=== PATIENT | male | born 1955 | race Caucasian/White ===

== ENCOUNTER 2018-09-05 11:01 | Outpatient (CLI) | payer BC ==
--- NOTE | 2018-09-05 14:50 | CT Report ---
Reason: PERSONAL HISTORY OF NICOTINE ABUSE Procedure Date: 09/05/2018 Accession Number: [id number] / [id number] Procedure: CT - Chest/Lung Screen Low Dose W/O CPT Code: FULL RESULT: EXAM CT LUNG SCREEN EXAM DATE: 09/05/2018 11:20 AM. HISTORY: 63-year-old patient with [id number] smoking history. Currently smoking: Yes. COMPARISON: None. TECHNIQUE: CT examination of the entire thorax without contrast was performed using low-dose technique. Thin section coronal, axial, sagittal and MIP axial images were obtained. In accordance with CT protocol optimization, one or more of the following dose reduction techniques were utilized for this exam: automated exposure control, adjustment of mA and/or KV based on patient size, or use of iterative reconstructive technique. FINDINGS: Nodules: Right upper lobe: 3.8 mm nodule in image 49 series 4 Right middle lobe: None. Right lower lobe: None. Left upper lobe: Calcified granuloma image 73 series 4. Left lower lobe: None. Emphysema: Bilateral predominantly centrilobular emphysema. Pleura: Unremarkable. Aorta: Mild calcifications. Mediastinum: Unremarkable. Coronary calcifications: Minimal. Other pulmonary findings: None. Other extrapulmonary findings: None. IMPRESSION: Lung-RADS ASSESSMENT CATEGORY: 2 - benign. Probability of malignancy: Less than 1%. RECOMMENDATION: Recommended follow up based on Lung-RADS guidelines with low-dose CT in 1 year. RADIA
== END 2018-09-05 11:02 | disposition home or self-care (01) ==
LOC: DI 11:01
PROVIDERS: ATTEND Family Medicine
DX: Z12.2 Encounter for screening for malignant neoplasm of respiratory organs (principal); R91.1 Solitary pulmonary nodule; J84.10 Pulmonary fibrosis, unspecified; Z87.891 Personal history of nicotine dependence

== ENCOUNTER 2019-08-17 11:31 | Emergency (ER) | payer BC ==
--- NOTE | 2019-08-17 12:52 | XRAY Report ---
Reason: Fall, R sided rib pain Procedure Date: 08/17/2019 Accession Number: [id number] / [id number] Procedure: XR - Ribs w/PA Chest RT CPT Code: FULL RESULT: EXAM: RIGHT RIB RADIOGRAPHY EXAM DATE: 08/17/2019 12:03 PM. CLINICAL HISTORY: Fall, R sided rib pain. COMPARISON: CHEST SCREEN LOW DOSE W/O 09/05/2018 11:22 AM. TECHNIQUE: 1 view of the chest and 2 views of the ribs. FINDINGS: Bones: Right seventh, eighth, ninth, 10th rib fractures. Multiple old left rib fractures. Lungs: No focal opacities. No pneumothorax. No pleural effusions. Mediastinum: Heart and mediastinal contours are unremarkable. Other: None. IMPRESSION: Right seventh, eighth, ninth and 10th rib fracture. No pneumothorax. RADIA
[2019-08-17] MEDS ORDERED: HYDROmorphone 1 MG/ML CARPUJECT IVP STA ×2 (13:34→15:45)
--- NOTE | 2019-08-17 13:36 | ED Physician Documentation ---
History of Present Illness - Stated complaint Stated Complaint: GLF/RT SIDE RIB PX - Chief complaint Chief Complaint: General - History obtained from History obtained from: Patient - History of Present Illness Timing: Last night (Fell off a ladder last night onto a ledge, hitting the right side of his chest. Severe pain but has not tried anything except for a few stiff drinks last night. Has a lot of pain with deep breathing. No other injuries.) Review of Systems Ten Systems: 10 systems reviewed and negative Constitutional: reports: Reviewed and negative Throat: reports: Reviewed and negative Respiratory: reports: Reviewed and negative PD PAST MEDICAL HISTORY - Present Medications Home Medications: Ambulatory Orders Medication Instructions Recorded Confirmed Oxycodone HCl/Acetaminophen 1 - 2 each PO Q6H PRN #30 tablet 08/17/19 [Percocet 5-325 mg Tablet] - Allergies Allergies/Adverse Reactions: Allergies Allergy/AdvReac Type Severity Reaction Status Date / Time No Known Drug Allergies Allergy Verified 08/17/19 11:48 - Social History Does the pt smoke?: No Smoking Status: Never smoker PD ED PE NORMAL - Vitals Vital signs reviewed: Yes - General General: Alert and oriented X 3 (Splinting his breaths) - HEENT HEENT: PERRL, EOMI - Neck Neck: Supple, no meningeal sign, No bony TTP - Cardiac Cardiac: RRR, No murmur - Respiratory Respiratory: No respiratory distress, Clear bilaterally, Other (Quite tender over the right chest wall) - Abdomen Abdomen: Soft, Non tender - Back Back: No CVA TTP, No spinal TTP - Derm Derm: Normal color, Warm and dry - Extremities Extremities: No edema, No calf tenderness / cord - Neuro Neuro: Alert and oriented X 3, Normal speech Results - Vitals Vitals: Vital Signs - 24 hr 08/17/19 11:44 Temperature 36.7 C Heart Rate 58 L Respiratory 18 Rate Blood Pressure 150/94 H O2 Saturation 98 - Labs Labs: Laboratory Tests 08/17/19 08/17/19 08/17/19 14:10 14:10 14:10 WBC 7.6 RBC 5.02 Hgb 16.5 Hct 48.6 MCV 96.8 H MCH 32.9 H MCHC 34.0 RDW 12.2 Plt Count 321 MPV 9.4 Neut # (Auto) 4.6 Lymph # (Auto) 1.9 [place] # (Auto) 0.7 Eos # (Auto) 0.2 Baso # (Auto) 0.1 Absolute Nucleated RBC 0.00 Nucleated RBC % 0.0 PT 12.6 INR 1.1 Sodium 136 Potassium 4.0 Chloride 97 L Carbon Dioxide 27 Anion Gap 12.0 BUN 19 Creatinine 0.9 Estimated GFR (MDRD) 85 L Glucose 101 H Calcium 9.5 Total Bilirubin 0.9 AST 45 H ALT 79 H Alkaline Phosphatase 69 Total Protein 8.0 Albumin 4.7 Globulin 3.3 Albumin/Globulin Ratio 1.4 Lipase 28 - Rads (name of study) CXR and CT Chest Radiology: EMP read contemporaneously PD MEDICAL DECISION MAKING - ED course ED course: 64-year-old gentleman with a fall yesterday sustaining 4 broken ribs on x-ray, given his age and concern for more internal injuries this was followed by CT with no other acute findings of significance. He was offered admission to the hospital or transfer to a trauma center but he very much wanted to go home with pain medication. He was much better after some IV Dilaudid here. Departure - Departure Disposition: 01 Home, Self Care Clinical Impression: Multiple fractures of ribs Qualifiers: Encounter type: initial encounter Fracture type: closed Laterality: right Qualified Code(s): S22.41XA - Multiple fractures of ribs, right side, initial encounter for closed fracture Condition: Good Record reviewed to determine appropriate education?: Yes Instructions: ED Fx Rib Prescriptions: Oxycodone HCl/Acetaminophen [Percocet 5-325 mg Tablet] 1 - 2 each PO Q6H PRN #30 tablet PRN Reason: pain Comments: Followup with your MD in 1 week, return for new or worsening symptoms. Do not drink or drive while taking narcotic pain medication. Note that many narcotic pain relievers also contain Tylenol/acetaminophen. Please ensure that your total dose of acetaminophen from all sources does not exceed 3 g (3000 mg) per day. You may get constipated while on this medication. Take a stool softener such as Colace twice a day while you are on it. Also add an [id number] laxative such as senna or MiraLAX on any day that you do not have a bowel movement. If you received a narcotic pain medication or sedative while in the emergency department, do not drive for the next 24 hours.
[2019-08-17 14:19] LABS: BASOPHILS # (AUTO) 0.1 10^3/uL (0.0-0.1); BASOPHILS % (AUTO) 0.8 %; EOSINOPHILS # (AUTO) 0.2 10^3/uL (0.0-0.7); HGB - HEMOGLOBIN 16.5 g/dL (14.0-18.0); LYMPHOCYTES # (AUTO) 1.9 10^3/uL (1.5-3.5); LYMPHOCYTES % (AUTO) 24.9 %; MEAN CORPUSCULAR HEMOGLOBIN 32.9 pg (27.0-31.0); MEAN CORPUSCULAR VOLUME 96.8 fL (80.0-94.0); MEAN PLATELET VOLUME 9.4 fL (7.4-11.4); MONOCYTES # (AUTO) 0.7 10^3/uL (0.0-1.0); MONOCYTES % (AUTO) 9.7 %; NEUTROPHILS # (AUTO) 4.6 10^3/uL (1.5-6.6); NEUTROPHILS % (AUTO) 61.3 %; PLT - PLATELET COUNT 321 10^3/uL (130-450); RED BLOOD COUNT 5.02 10^6/uL (4.70-6.10); RED CELL DISTRIBUTION WIDTH 12.2 % (12.0-15.0); WHITE BLOOD COUNT 7.6 x10^3/uL (4.8-10.8)
[2019-08-17 14:24] LABS: INR 1.1 (0.8-1.2); PT - PROTHROMBIN TIME 12.6 secs (9.9-12.6)
[2019-08-17 14:32] LABS: ALBUMIN 4.7 g/dL (3.2-5.5); ALBUMIN/GLOBULIN RATIO 1.4 (1.0-2.2); BILIRUBIN,TOTAL 0.9 mg/dL (0.2-1.0); CALCIUM 9.5 mg/dL (8.5-10.3); CREATININE 0.9 mg/dL (0.6-1.2)
[2019-08-17] MEDS ORDERED: IOVERSOL 320 100 ML VIAL IVP ONE ×2 (14:55→15:00)
--- NOTE | 2019-08-17 15:21 | CT Report ---
Reason: 4+ rib frxs Procedure Date: 08/17/2019 Accession Number: [id number] / [id number] Procedure: CT - CHEST W CPT Code: FULL RESULT: EXAM: CT CHEST EXAM DATE: 08/17/2019 02:58 PM. CLINICAL HISTORY: 4+ rib frxs. Fall, right-sided pain. COMPARISONS: CHEST SCREEN LOW DOSE W/O 09/05/2018 11:22 AM RIBS W/PA CHEST RT 08/17/2019 11:55 AM. TECHNIQUE: Routine helical CT imaging was performed through the chest. IV contrast: 80 cc Optiray 320. Reconstructions: Coronal and sagittal. In accordance with CT protocol optimization, one or more of the following dose reduction techniques were utilized for this exam: automated exposure control, adjustment of mA and/or KV based on patient size, or use of iterative reconstructive technique. FINDINGS: Lungs/Pleura: Mild centrilobular emphysema. 1 cm subpleural simple cyst inferiorly in the lateral segment right middle lobe. Mild dependent atelectasis in the posterior basal right lower lobe. Mild wispy scarring laterally in the mid lower left lung. No confluent consolidation. Central airways are normal. No pleural fluid or pneumothorax. Mediastinum: Heart size is normal. Central pulmonary arteries are unremarkable. There is mild calcified and noncalcified plaque in the arch and descending thoracic aorta. Lower thyroid gland unremarkable. Minimal fluid in the distal esophagus. Small sliding hiatal hernia no lymphadenopathy. No hematoma. Bones: Acute mildly displaced fractures of the lateral right seventh, eighth, ninth, and 10th ribs. No other acute fractures are identified. There are chronic healed fractures of the left first through 11th ribs. Visualized Abdomen: Simple bilateral renal cortical cysts. Gallbladder surgically absent. Common bile duct moderately dilated measuring up to 14 mm in the suprapancreatic portion without intrahepatic ductal dilatation, probably physiologic in the setting of prior cholecystectomy. Other: Chest wall unremarkable. IMPRESSION: 1. Acute mildly displaced fractures of the lateral right seventh through 10th ribs. 2. Chronic healed fractures of the left first through 11th ribs. 3. Mild atelectasis at the right lung base. Mild centrilobular emphysema. No pleural fluid or pneumothorax. 4. No mediastinal hematoma. 5. Tiny hiatal hernia. 6. Mild common bile duct dilation, likely physiologic in the setting of prior cholecystectomy. RADIA
[2019-08-17] MEDS ORDERED: KETOROLAC 30 MG/ML VIAL IVP STA (15:45)
[2019-08-17 16:01] VITALS: BP 151/78
== END 2019-08-17 16:01 | disposition home or self-care (01) ==
LOC: ED 11:31
DX: S22.41XA Multiple fractures of ribs, right side, initial encounter for closed fracture (principal); W11.XXXA Fall on and from ladder, initial encounter
CPT/HCPCS: 36415; 71101; 71260; 80053; 83690; 85025; 85610; 96374; 96376; 99283; 99284; J1170; Q9967

== ENCOUNTER 2019-08-20 03:41 | Emergency (ER) | payer BC ==
--- NOTE | 2019-08-20 06:58 | ED Physician Documentation ---
PD HPI ABD PAIN - Stated complaint Stated Complaint: ABD PX - Chief complaint Chief Complaint: Abd Pain - History obtained from History obtained from: Patient - History of Present Illness Timing - onset: How many days ago (4) Timing - duration: Days (4) Timing - details: Gradual onset, Still present Quality: Cramping, Pain Location: All over / everywhere Improved by: Other (time) Worsened by: Palpation Associated symptoms: Constipation Similar symptoms before: Has not had sx before Recently seen: Emergency Dept - Additional information Additional information: 64-year-old male was seen in the emergency department after a fall off of the ladder 3 days ago and he was prescribed narcotic pain reliever for treatment of rib fracture. The patient promptly developed constipation and he has had no stool output since. He was seen here about 3 days ago for these fractures and he has become uncomfortable with the level of constipation he has developed. He has taken a bottle of magnesium citrate without relief and he has taken senna. Review of Systems Constitutional: reports: Fatigue. denies: Fever Eyes: denies: Decreased vision Ears: denies: Ear pain Nose: denies: Rhinorrhea / runny nose, Congestion Throat: denies: Sore throat Cardiac: reports: Chest pain / pressure. denies: Palpitations, Pedal edema, Calf pain Respiratory: denies: Dyspnea, Cough GI: reports: Abdominal Pain, Constipation. denies: Nausea, Vomiting : denies: Dysuria, Frequency PD PAST MEDICAL HISTORY - Present Medications Home Medications: Ambulatory Orders Medication Instructions Recorded Confirmed Oxycodone HCl/Acetaminophen 1 - 2 each PO Q6H PRN #30 tablet 08/17/19 [Percocet 5-325 mg Tablet] Lactulose [Generlac] 10 gm PO TID PRN #150 ml 08/20/19 - Allergies Allergies/Adverse Reactions: Allergies Allergy/AdvReac Type Severity Reaction Status Date / Time No Known Drug Allergies Allergy Verified 08/17/19 11:48 - Social History Does the pt smoke?: No Smoking Status: Never smoker PD ED PE NORMAL - Vitals Vital signs reviewed: Yes (hypertensive ) - General General: Alert and oriented X 3, Well developed/nourished, Other (apears worn out) - HEENT HEENT: Atraumatic, PERRL, EOMI - Respiratory Respiratory: No respiratory distress - Abdomen Abdomen: Soft, Other (mild tenderness to right side no gaurding or rebound. ) - Back Back: No CVA TTP, No spinal TTP - Derm Derm: Normal color, Warm and dry, No rash - Extremities Extremities: No deformity, No edema, No calf tenderness / cord - Neuro Neuro: Alert and oriented X 3, information and referral director 2-12 intact, No motor deficit, No sensory deficit, Normal speech Eye Opening: Spontaneous Motor: Obeys Commands Verbal: Oriented GCS Score: 15 - Psych Psych: Normal mood, Other (affect is blunted. ) Results - Vitals Vitals: Vital Signs - 24 hr 08/20/19 03:47 Temperature 36.8 C Heart Rate 64 Respiratory 16 Rate Blood Pressure 154/95 H O2 Saturation 95 Oxygen O2 Source Room air PD MEDICAL DECISION MAKING - ED course Complexity details: reviewed results, re-evaluated patient, considered differential, d/w patient, d/w family ED course: 64-year-old male with opiate induced constipation appears uncomfortable and he is administered an oil retention enema without results and a Violette soapsuds enema with return of significant amount of watery stool. Departure - Departure Disposition: 01 Home, Self Care Clinical Impression: Constipation Qualifiers: Constipation type: drug induced constipation Qualified Code(s): K59.03 - Drug induced constipation Condition: Stable Instructions: ED Constipation Follow-Up: Nash Davidson MD [Primary Care Provider] - Prescriptions: Lactulose [Generlac] 10 gm PO TID PRN #150 ml PRN Reason: constipation Comments: For this narcotic induced constipation try the lactulose. This is a "PRN" medication and you can take up to 3 doses per day.
[2019-08-20 07:20] VITALS: BP 153/79
== END 2019-08-20 07:20 | disposition home or self-care (01) ==
LOC: ED 03:41
DX: K59.03 Drug induced constipation (principal); T40.2X5A Adverse effect of other opioids, initial encounter
CPT/HCPCS: 99282; 99283

== ENCOUNTER 2020-12-06 15:19 | Outpatient (CLI) | payer OTHER ==
[2020-12-06] MEDS ORDERED: IOPAMIDOL-300 50 ML VIAL ONE (15:37)
[2020-12-06] MEDS ORDERED: IOVERSOL 320 100 ML VIAL IVP ONE ×2 (15:37→16:39)
--- NOTE | 2020-12-06 17:48 | CT Report ---
PROCEDURE: Abdomen/Pelvis W INDICATIONS: LLQ PAIN CONTRAST: IV CONTRAST: Optiray 320 ml: 100 PO CONTRAST: Isovue 300 ml50 TECHNIQUE: After the administration of IV and oral contrast, 5 mm thick sections acquired from the diaphragms to the symphysis. 5 mm thick coronal and sagittal reformats were acquired. For radiation dose reducti on, the following was used: automated exposure control, adjustment of mA and/or kV according to forrest ent size. COMPARISON: None. FINDINGS: Image quality: Excellent. ABDOMEN: Lung bases: 4 mm diameter nodule within the right lateral lung base. Lung bases are otherwise clear. Heart size is normal. Solid organs: Liver and spleen are normal in size and enhancement. Gallbladder is surgically absent Biliary system is non dilated. Pancreas enhances normally. No adrenal nodules. Bilateral renal c ysts are present, largest of which is partially exophytic, involving the left inferior pole/interpola r kidney measuring 60 mm which demonstrates parapelvic extension. Kidneys otherwise demonstrate parag l size and enhancement, without hydronephrosis. Peritoneum and bowel: Small hiatal hernia. Bowel loops demonstrate normal wall thickness and caliber. No free fluid or air. Normal appendix. Nodes and vessels: No retroperitoneal or mesenteric adenopathy by size criteria. Aorta and inferior vena cava are normal in size. Miscellaneous: No ventral hernias. PELVIS: Genitourinary: Bladder wall is trabeculated. There is a left anterior urinary bladder wall diverticu lum measuring roughly 36 mm. Miscellaneous: No inguinal hernias or adenopathy. Bones: No suspicious bony lesions. No vertebral body compression fractures. IMPRESSION: 1. No acute process. 2.Urinary bladder trabeculation and diverticulum, suggestive of chronic bladder outlet obstruction. 3. Normal appendix. Reviewed by: Jocelyne Greer MD on 12/06/2020 5:46 PM PST Approved by: Jocelyne Greer MD on 12/06/2020 5:46 PM PST Station ID: [id number]
== END 2020-12-06 15:20 | disposition home or self-care (01) ==
LOC: DI 15:19
PROVIDERS: ATTEND Surgery
DX: R10.32 Left lower quadrant pain (principal)
CPT/HCPCS: 74177; Q9967

== ENCOUNTER 2020-12-16 14:25 | Outpatient (CLI) | payer OTHER ==
--- NOTE | 2020-12-16 15:10 | XRAY Report ---
PROCEDURE: Knee 3 View LT INDICATIONS: PAIN IN LT KNEE TECHNIQUE: 3 views of the left knee(s) were acquired. COMPARISON: None. FINDINGS: Bones: No fractures or dislocations. There are tricompartmental osteoarthritis is seen more prominen t in medial femoral tibial compartment. No suspicious bony lesions. Soft tissues: No joint effusion. No suspicious soft tissue calcifications. IMPRESSION: No left knee fracture or dislocation. Moderate tricompartmental osteoarthritis. No signi ficant joint effusion. Reviewed by: Mauricio Melgar MD on 12/16/2020 3:08 PM PST Approved by: Mauricio Melgar MD on 12/16/2020 3:08 PM PST Station ID: [id number]
--- NOTE | 2020-12-16 15:10 | XRAY Report ---
PROCEDURE: Knee 3 View RT INDICATIONS: PAIN IN RT KNEE TECHNIQUE: 3 views of the right knee(s) were acquired. COMPARISON: None. FINDINGS: Bones: No fractures or dislocations. Mild to moderate tricompartment osteoarthritis is seen more pro minent in medial femoral tibial compartment. No suspicious bony lesions. Soft tissues: No joint effusion. No suspicious soft tissue calcifications. IMPRESSION: Mild to moderate tricompartmental osteoarthritis more prominent in medial femoral tibial compartment. No fracture or dislocation. No joint effusion. Reviewed by: Mauricio Melgar MD on 12/16/2020 3:09 PM PST Approved by: Mauricio Melgar MD on 12/16/2020 3:09 PM PST Station ID: [id number]
== END 2020-12-16 14:26 | disposition home or self-care (01) ==
LOC: DI.S 14:25
PROVIDERS: ATTEND Family Medicine
DX: M17.0 Bilateral primary osteoarthritis of knee (principal)

== ENCOUNTER 2021-02-17 17:15 | Outpatient (CLI) | payer OTHER | END 2021-02-17 17:16 | disposition home or self-care (01) | LOC: COV 17:15 | DX: Z01.812 Encounter for preprocedural laboratory examination (principal); Z20.822 Contact with and (suspected) exposure to COVID-19 ==

== ENCOUNTER 2021-10-04 12:11 | Emergency (ER) | payer MEDICARE, OTHER ==
[2021-10-04] MEDS ORDERED: SODIUM CHLORIDE 0.9% 1,000 ML IV STA (12:41)
[2021-10-04] MEDS ORDERED: PANTOPRAZOLE 40 MG VIAL IVP STA (12:41)
--- NOTE | 2021-10-04 12:42 | ED Physician Documentation ---
History of Present Illness - Stated complaint Stated Complaint: CP, UNABLE TO SWOLLOW,VOMITING BLOOD,CHILLS,FEVER - History obtained from History obtained from: Patient - Additonal information Additional information: 66-year-old gentleman with history of hiatal hernia and remote reflux got back from [place] last night where he had been drinking heavily, much more than is his routine. For the last couple of days he has been vomiting with some small blood streaks, he is also had cough. No shortness of breath though. He is fully immunized against Covid and has had a booster. Review of Systems Constitutional: denies: Fever, Chills Eyes: reports: Reviewed and negative Ears: reports: Reviewed and negative Nose: reports: Reviewed and negative Throat: reports: Reviewed and negative PD PAST MEDICAL HISTORY - Present Medications Home Medications: Ambulatory Orders Medication Instructions Recorded Confirmed Omeprazole 40 mg PO DAILY #30 cap 10/04/21 - Allergies Allergies/Adverse Reactions: Allergies Allergy/AdvReac Type Severity Reaction Status Date / Time No Known Drug Allergies Allergy Verified 10/04/21 12:44 - Social History Does the pt smoke?: No Smoking Status: Never smoker PD ED PE NORMAL - Vitals Vital signs reviewed: Yes - General General: Alert and oriented X 3, No acute distress - HEENT HEENT: PERRL, EOMI - Neck Neck: Supple, no meningeal sign, No bony TTP - Cardiac Cardiac: RRR, No murmur - Respiratory Respiratory: No respiratory distress, Clear bilaterally - Abdomen Abdomen: Normal bowel sounds, Soft, Non tender - Derm Derm: Normal color, Warm and dry - Extremities Extremities: No edema, No calf tenderness / cord - Neuro Neuro: Alert and oriented X 3, Normal speech - Psych Psych: Normal mood, Normal affect Results - Vitals Vitals: Vital Signs - 24 hr 10/04/21 12:30 Temperature 36.9 C Heart Rate 68 Respiratory 19 Rate Blood Pressure 136/108 H O2 Saturation 98 Oxygen O2 Source Room air - Labs Labs: Laboratory Tests 10/04/21 10/04/21 10/04/21 12:57 12:57 13:30 WBC 7.1 RBC 4.30 L Hgb 14.0 Hct 42.1 MCV 97.9 H MCH 32.6 H MCHC 33.3 RDW 13.0 Plt Count 286 MPV 9.3 Neut # (Auto) 5.0 Lymph # (Auto) 1.1 [place] # (Auto) 0.9 Eos # (Auto) 0.1 Baso # (Auto) 0.0 Absolute Nucleated RBC 0.00 Nucleated RBC % 0.0 Sodium 137 Potassium 3.7 Chloride 98 L Carbon Dioxide 24 Anion Gap 15.0 H BUN 15 Creatinine 0.8 Estimated GFR (MDRD) 96 Glucose 106 H Calcium 9.2 Magnesium 2.4 Total Bilirubin 0.9 AST 71 H ALT 167 H Alkaline Phosphatase 114 Troponin I High Sens 11.0 Total Protein 7.4 Albumin 4.3 Globulin 3.1 Albumin/Globulin Ratio 1.4 Lipase 32 Ethyl Alcohol < 5.0 PD MEDICAL DECISION MAKING - ED course ED course: 66-year-old gentleman returns after a trip to [place] where he overdid it with the alcohol little bit. Now presents with some blood flecked vomit and difficulty swallowing. His work-up here demonstrated no evidence of blood loss. He does have mild transaminitis and advised to abstain from alcohol for a bit. He felt better after IV Protonix and fluids. No evidence of ACS, but that was low on the differential given the above history. Departure - Departure Disposition: 01 Home, Self Care Clinical Impression: Gastritis Qualifiers: Gastritis type: unspecified gastritis Chronicity: acute Gastritis bleeding: with bleeding Qualified Code(s): K29.01 - Acute gastritis with bleeding Condition: Good Record reviewed to determine appropriate education?: Yes Instructions: ED Gastritis Prescriptions: Omeprazole 40 mg PO DAILY #30 cap Comments: Recommend abstaining from alcohol for about a week, then not a lot after that anyway. Return for new or worsening symptoms. Follow-up with your primary care physician, next billable appointment.
[2021-10-04 13:34] LABS: BASOPHILS % (AUTO) 0.6 %; EOSINOPHILS # (AUTO) 0.1 10^3/uL (0.0-0.7); EOSINOPHILS % (AUTO) 1.3 %; HCT - HEMATOCRIT 42.1 % (42.0-52.0); LYMPHOCYTES # (AUTO) 1.1 10^3/uL (1.5-3.5); LYMPHOCYTES % (AUTO) 15.6 %; MEAN CORPUSCULAR HEMOGLOBIN 32.6 pg (27.0-31.0); MEAN CORPUSCULAR HGB CONC 33.3 g/dL (32.0-36.0); MEAN CORPUSCULAR VOLUME 97.9 fL (80.0-94.0); MEAN PLATELET VOLUME 9.3 fL (7.4-11.4); MONOCYTES # (AUTO) 0.9 10^3/uL (0.0-1.0); MONOCYTES % (AUTO) 12.4 %; NEUTROPHILS % (AUTO) 69.8 %; PLT - PLATELET COUNT 286 10^3/uL (130-450); WHITE BLOOD COUNT 7.1 x10^3/uL (4.8-10.8)
[2021-10-04 13:43] LABS: ALBUMIN 4.3 g/dL (3.2-5.5); ALBUMIN/GLOBULIN RATIO 1.4 (1.0-2.2); ALKALINE PHOSPHATASE 114 IU/L (42-121); ALT ALANINE AMINOTRANSFERASE 167 IU/L (10-60); AST ASPARTATE AMINOTRANSFERASE 71 IU/L (10-42); BILIRUBIN,TOTAL 0.9 mg/dL (0.2-1.0); BUN - BLOOD UREA NITROGEN 15 mg/dL (6-20); CALCIUM 9.2 mg/dL (8.5-10.3); CARBON DIOXIDE - CO2 24 mmol/L (21-32); CHLORIDE 98 mmol/L (101-111); CREATININE 0.8 mg/dL (0.6-1.2); ETOH - ETHANOL < 5.0 mg/dL; GFR - MDRD 96 (>89); GLUCOSE 106 mg/dL (70-100); LIPASE 32 U/L (22-51); MAGNESIUM 2.4 mg/dL (1.7-2.8); POTASSIUM 3.7 mmol/L (3.5-5.0); SODIUM 137 mmol/L (135-145); TOTAL PROTEIN 7.4 g/dL (6.7-8.2)
--- NOTE | 2021-10-04 13:48 | XRAY Report ---
PROCEDURE: Chest 1 View X-Ray INDICATIONS: cough COMMENTS: cough/ Pt states cough, sore throat with blood for a couple days RI IORS: none TECHNIQUE: One view of the chest was acquired. COMPARISON: None FINDINGS: Surgical changes and devices: None. Lungs and pleura: No pleural effusions or pneumothorax. Lungs are clear. Mediastinum: Mediastinal contours appear normal. Heart size is normal. Bones and chest wall: No suspicious bony lesions. Overlying soft tissues appear unremarkable. IMPRESSION: No acute cardiopulmonary abnormality Reviewed by: Melvin Person on 10/04/2021 1:47 PM PST Approved by: Melvin Person on 10/04/2021 1:47 PM [facility] Station ID: [id number]
[2021-10-04 14:09] VITALS: BP 138/67
== END 2021-10-04 14:04 | disposition home or self-care (01) ==
LOC: ED 12:11
DX: K29.01 Acute gastritis with bleeding (principal); R74.01 Elevation of levels of liver transaminase levels; K44.9 Diaphragmatic hernia without obstruction or gangrene
CPT/HCPCS: 36415; 71045; 80053; 83690; 83735; 84484; 85025; 93005; 96361; 96374; 99283; 99284; G0480; 80320